=== PATIENT | female | born 1960 | race Caucasian/White ===

== ENCOUNTER → 2018-02-15 | Outpatient (CLI) | payer OTHER ==
[2018-02-15 12:12] LABS: ANION GAP 9 (5-13); BLOOD UREA NITROGEN 24 mg/dl (7-20); CALCIUM 9.6 mg/dl (8.4-10.2); CARBON DIOXIDE 28 mmol/L (21-31); CHLORIDE 105 mmol/L (97-110); CREATININE 0.84 mg/dl (0.44-1.00); Estimated GFR > 60 mL/min (>60); GLUCOSE 122 mg/dl (70-220); POTASSIUM 4.2 mmol/L (3.5-5.1); SODIUM 142 mmol/L (135-144)
== END | disposition home or self-care (01) ==
LOC: LAB 10:20
DX: R07.9 Chest pain, unspecified (principal); R94.39 Abnormal result of other cardiovascular function study
CPT/HCPCS: 80048

== ENCOUNTER → 2018-02-17 | Outpatient (CLI) | payer OTHER ==
[~2018-02-17] MED LIST: NITROGLYCERIN AEROSOL (4.9 GM)
[2018-02-17] MEDS: IOHEXOL 100 ML (10:30)
[2018-02-17] MEDS: SOD CHLORIDE 0.9% 100 ML (10:38)
== END | disposition home or self-care (01) ==
LOC: C/S 08:44
DX: R07.9 Chest pain, unspecified (principal); R94.39 Abnormal result of other cardiovascular function study
CPT/HCPCS: 75574